=== PATIENT | female | born 2000 | race Two or more races ===

== ENCOUNTER 2025-03-11 16:00 | Emergency (ER) | payer OTHER ==
[~2025-03-11] VITALS: Ht 157.5 cm; Wt 47.6 kg
[2025-03-11] MEDS ORDERED: CEFTRIAXONE SODIUM 1,000 MG VIAL IM STA (17:32)
[2025-03-11] MEDS ORDERED: KETOROLAC TROMETHAMINE 30 MG VIAL IM STA (17:32)
[2025-03-11] MEDS ORDERED: ONDANSETRON HCL 2 MG/ML VIAL IV STA (17:35)
[2025-03-11 18:46] LABS: BASO % 0.6 % (0.1-1.2); EOS # 0.12 (0.04-0.54); EOS % 2.2 % (0.7-7.0); LYMPH # 1.79 (1.18-3.74); LYMPH % 33.2 % (19.3-53.1); MEAN PLATELET VOLUME 9.10 fl (9.4-12.4); MONO # 0.62 (0.24-0.82); MONO % 11.5 % (4.7-12.5); NEUT # 2.82 (1.56-6.13); NEUT % 52.3 % (34.0-71.1); RED CELL DISTRIBUTION WIDTH 12.0 % (11.6-14.4)
[2025-03-11 19:07] LABS: URINE APPEARANCE Clear; URINE BILIRRUBIN Negative (NEGATIVE); URINE BLOOD Moderate; URINE COLOR Yellow; URINE GLUCOSE Negative (NEGATIVE); URINE KETONE Trace (NEGATIVE); URINE LEUKOCYTE Negative; URINE NITRATE Negative; URINE PROTEIN Trace (NEGATIVE); URINE UROBILINOGEN 1.0 E.U./dl
[2025-03-11 19:10] LABS: URINE BACTERIA 600.5 uL (0.0-1933); URINE EPITHELIAL CELLS 9.1 uL (0.0-38.8); URINE RBC 152.5 uL (0.0-20.8); URINE WBC 10.1 uL (0.0-23.2)
[2025-03-11 19:15] LABS: URINE CAST 0.00 uL (0.0-1.40)
[2025-03-11 19:15] LABS: BUN CREA RATIO 16.0 (7.0-25.0); CREATININE SERUM 0.85 mg/dL (0.55-1.02); GFR 82.88; GLUCOSE FASTING 92.0 mg/dL (65-100); OSMOLALITY SERUM 285.0 MOSM/KG (275-295)
[2025-03-11] MEDS ORDERED: DICLOFENAC POTA50 MG PO (20:15)
[2025-03-11] MEDS ORDERED: ZITHROMAX500 MG PO (20:30)
== END 2025-03-11 20:49 | disposition home or self-care (01) ==
LOC: ER 16:00
PROVIDERS: General Practice
DX: R10.20 Pelvic and perineal pain unspecified side (principal)
CPT/HCPCS: 36415; 76830; 96365; J1885; J2405